=== PATIENT | female | born 1970 ===

== ENCOUNTER 2022-08-05 08:49 | Day surgery (SDC) | payer OTHER ==
[~2022-08-05] VITALS: Ht 160 cm; Wt 63.2 kg
[~2022-08-05 08:49] MED LIST: MULVITA PO; ZOCOR20 MG PO
--- NOTE | 2022-08-05 10:22 | NUR ---
Ambulatory in Day Surgery.Patient states colon prep results clear. History, Chart, Medications and Allergies reviewed before start of procedure.Lungs clear T/O to Auscultation. Patient confirms NPO status and agrees with scheduled surgery. Pre-Op teaching done. Pt verbalizes understanding. Patient States Post-Procedure ride home has been arranged.
--- NOTE | 2022-08-05 10:41 | NUR ---
08/05/22 1041 Fidel Hanks HISTORY, CHART, MEDICATIONS AND ALLERGIES REVIEWED BEFORE START OF PROCEDURE. PATIENT CONFIRMS NPO STATUS AND AGREES WITH SCHEDULED PROCEDURE. 3-LEAD EKG REVIEWED WITH PHYSICIAN PRIOR TO START OF PROCEDURE. MONITOR INTACT WITH CONTINUOUS PULSE OXIMETRY,CAPNOGRAPHY, 3-LEAD EKG, INTERMITTENT BP. SUPPLEMENTAL O2 TO BE TITRATED THROUGHOUT PROCEDURE TO MAINTAIN O2 SATURATION ABOVE 90%. PATIENT DETERMINED TO BE ASA APPROPRIATE FOR PROPOFOL SEDATION PRIOR TO START OF PROCEDURE BY
--- NOTE | 2022-08-05 11:06 | NUR ---
DISCHARAGE NOTE PT A&OX4, VSS, NO PAIN OR NAUSEA. PT TOLERATING PO FLUIDS. HUSB AT BEDSIDE. Discharge instructions reviewed with patient. Patient verbalizes understanding. Copy given to patient to take home. Discharged via wheelchair to private car for ride home.
== END 2022-08-05 11:25 | disposition home or self-care (01) ==
LOC: ORSCMMR 08:49 → ORD 10:00 → ORSCMMR 10:00
PROVIDERS: Internal Medicine Gastroenterology
PROC: 0DBL8ZX Excision of Transverse Colon, Via Natural or Artificial Opening Endoscopic, Diagnostic (ICD-10-PCS; principal; 2022-08-05 10:00)
PROC: 0DBH8ZX Excision of Cecum, Via Natural or Artificial Opening Endoscopic, Diagnostic (ICD-10-PCS; principal; 2022-08-05 10:00)
PROC: 0DBP8ZX Excision of Rectum, Via Natural or Artificial Opening Endoscopic, Diagnostic (ICD-10-PCS; principal; 2022-08-05 10:00)
DX: Z12.11 Encounter for screening for malignant neoplasm of colon (principal); Z80.0 Family history of malignant neoplasm of digestive organs; K63.5 Polyp of colon; D12.3 Benign neoplasm of transverse colon; K62.1 Rectal polyp; E78.00 Pure hypercholesterolemia, unspecified; F17.210 Nicotine dependence, cigarettes, uncomplicated
CPT/HCPCS: 88305; J2704; J7120

== ENCOUNTER → 2023-01-04 | Outpatient (CLI) | payer OTHER | END | disposition home or self-care (01) | LOC: PLD 07:57 → LAB SHORT 07:57 | DX: N84.1 Polyp of cervix uteri (principal) | CPT/HCPCS: 88305 ==